=== PATIENT | female | born 1970 | race Caucasian/White ===

== ENCOUNTER → 2018-12-18 | Outpatient (REF) ==
[2018-12-18 18:23] LABS: BASO # 0.1 10^3/uL (0.0-0.2); BASO % 0.6 % (0.0-1.0); EOS # 0.1 10^3/uL (0.0-0.50); HEMATOCRIT 37.2 % (36.0-47.0); HEMOGLOBIN 11.7 g/dl (12.0-15.5); LYMPH % 38.5 % (24.0-44.0); MEAN CORPUSCULAR HGB CONC 31.5 g/dl (32.0-36.5); MEAN CORPUSCULAR VOLUME 92.3 fl (80.0-96.0); MONO # 0.8 10^3/uL (0.0-0.8); MONO % 10.8 % (0.0-5.0); NEUTROPHILS # 3.8 10^3/uL (1.8-7.7); PLATELET COUNT, AUTOMATED 313 10^3/uL (150-450); RED BLOOD COUNT 4.03 10^6/uL (4.00-5.40); WHITE BLOOD COUNT 7.8 10^3/uL (4.0-10.0)
== END ==
LOC: M LABSMT 17:02
PROVIDERS: ATTEND Allergy & Immunology Allergy
DX: J45.30 Mild persistent asthma, uncomplicated (principal)

== ENCOUNTER → 2020-03-01 | Outpatient (REF) | payer BC ==
[~2020-03-01] MED LIST: ARMO1TAB PO; CYMB60CA3 PO; FERR240T PO; LISI10TA4 PO; MACR100C43 PO; METF10004 PO; VITA50005 PO; XANA0.25 PO
[2020-03-01 17:52] LABS: APPEARANCE, URINE CLEAR (CLEAR); BACTERIA, URINE AUTO 1+ (NEGATIVE); BILIRUBIN, URINE AUTO NEGATIVE (NEGATIVE); BLOOD, URINE BLOOD NEGATIVE (NEGATIVE); COLOR, URINE YELLOW (YELLOW); GLUCOSE, URINE (UA) AUTO NEGATIVE (NEGATIVE); KETONE, URINE AUTO NEGATIVE (NEGATIVE); LEUKOCYTE ESTERASE, URINE AUTO NEGATIVE (NEGATIVE); MUCUS, URINE SMALL (NEGATIVE); NITRITE, URINE AUTO POSITIVE (NEGATIVE); PROTEIN, URINE AUTO NEGATIVE (NEGATIVE); RBC, URINE AUTO 0 /HPF (0-3); SPECIFIC GRAVITY URINE AUTO 1.017 (1.002-1.035); SQUAMOUS EPITHELIAL CELL UR AU 0 /HPF (0-6); UROBILINOGEN, URINE AUTO 0.2 mg/dL (0.0-2.0); WBC, URINE AUTO 6 /HPF (0-3)
== END ==
LOC: M SMT 16:43
PROVIDERS: ATTEND Urology
DX: N39.8 Other specified disorders of urinary system (principal)

== ENCOUNTER → 2020-03-17 | Outpatient (CLI) | payer BC ==
[~2020-03-17] MED LIST changes: +B-121KIT IJ
== END ==
LOC: M LABSMTC 10:46
PROVIDERS: ATTEND Anesthesiology
DX: Z01.812 Encounter for preprocedural laboratory examination (principal); Z20.828 Contact with and (suspected) exposure to other viral communicable diseases
CPT/HCPCS: C9803; U0003

== ENCOUNTER 2020-03-22 05:58 | Day surgery (SDC) | payer BC ==
[~2020-03-22] VITALS: Ht 167.6 cm; Wt 121.1 kg
[~2020-03-22 05:58] MED LIST changes: -B-121KIT IJ
[2020-03-22] MEDS ORDERED: B-121KIT IJ (06:22)
[2020-03-22] MEDS ORDERED: LR 1,000 ML IV ONE (07:00)
[2020-03-22] MEDS ORDERED: ceFAZolin SOD 2 GM in IV 1 EA IV ONE (07:00)
[2020-03-22] MEDS ORDERED: propofoL 200 MG/20 ML VIAL As Ordered ONE (07:10)
[2020-03-22] MEDS ORDERED: LIDOCAINE 2% 100MG/5ML SDV (FOR ANES.) As Ordered ONE (07:11)
[2020-03-22] MEDS ORDERED: fentaNYL 100 MCG/2 ML INJECTION (J3010) As Ordered ONE (07:13)
[2020-03-22] MEDS ORDERED: dexameTHASONE 4 MG/ML 1ML VIAL (J1100 PER 1MG) As Ordered ONE (07:13)
[2020-03-22] MEDS ORDERED: ONDANSETRON 4MG/2ML VIAL As Ordered ONE (07:13)
[2020-03-22] MEDS ORDERED: MIDAZOLAM INJ 2MG/2ML VIAL (J2250 PER 1MG) As Ordered ONE (07:13)
[2020-03-22] MEDS ORDERED: LIDOCAINE 1% MDV 50ML VIAL As Ordered ONE (07:17)
[2020-03-22] MEDS ORDERED: LIDOCAINE 2% 5ML JELLY UROJET As Ordered ONE ×2 (07:17→07:18)
[2020-03-22] MEDS ORDERED: ACETAMINOPHEN 1000MG 100ML IV BTL (OFIRMEV) (J0131 PER 10MG) As Ordered ONE (08:05)
--- NOTE | 2020-03-22 08:42 | ROOPDOC ---
[facility] Report Of Operation Report of Operation DATE OF PROCEDURE: 03/22/20 PREPROCEDURE DIAGNOSES: Hematuria and voiding dysfunction. POSTPROCEDURE DIAGNOSES: Same PROCEDURE: Cystoscopy, urethral dilation, hydrodistention, and bladder biopsies SURGEON: Ksenia Baez MD MARINE ENGINE DRIVER: None ANESTHESIA: General ESTIMATED BLOOD LOSS: Approximately 0 mL. COMPLICATIONS: None REMARKS: Some pseudomembranous trigonitis which was fulgurated PROCEDURE NOTE: The patient is a 49-year-old female who was scheduled by Dr. Wilcox for random biopsies for gross hematuria and also hydrodistention for voiding dysfunction. All options, alternatives, risks, and benefits were discussed with the patient. Informed consent was obtained in verbal and written form. DESCRIPTION OF PROCEDURE: The patient was brought into the operating room and anesthesia was induced. She was placed in the lithotomy position. She was prepped and draped in the usual fashion. A 21 U[place]bek cystoscope was inserted and the bladder was emptied this was then filled under gravity drainage with normal saline ladder capacity was greater than 800 mL under anesthesia. After distention there was no evidence of glomerulations or abnormalities. There was some pseudomembranous trigonitis. Both ureteral orifices were seen. There was no evidence of erythematous patches, lesions, stones, or other abnormalities. Random bladder biopsies were taken including of the area pseudomembranous trigonitis. This area was then fulgurated. The patient tolerated the procedure well. KSENIA BAEZ MD Mar 22, 2020 08:42
[2020-03-22] MEDS ORDERED: oxyCODONE 5MG TAB PO PRN (09:15)
[2020-03-22] MEDS ORDERED: METOCLOPRAMIDE INJ 10MG/2ML VIAL (J2765 PER 1) IV PRN (09:15)
[2020-03-22] MEDS ORDERED: fentaNYL 100 MCG/2 ML INJECTION (J3010) IV PRN (09:15)
[2020-03-22] MEDS ORDERED: LR 1,000 ML IV SCH (09:15)
[2020-03-22] MEDS ORDERED: MEPERIDINE INJ 25 MG/ML VIAL (J2175) IV PRN (09:15)
[2020-03-22] MEDS ORDERED: ONDANSETRON 4MG/2ML VIAL IV PRN (09:15)
[2020-03-22 09:35] VITALS: BP 140/82
== END 2020-03-22 09:35 | disposition home or self-care (01) ==
LOC: M SDC 05:58
PROVIDERS: ATTEND Specialist
DX: R31.9 Hematuria, unspecified (principal); I10 Essential (primary) hypertension; J45.909 Unspecified asthma, uncomplicated; K21.9 Gastro-esophageal reflux disease without esophagitis; Z98.84 Bariatric surgery status; E03.9 Hypothyroidism, unspecified; F41.9 Anxiety disorder, unspecified; F32.9 Major depressive disorder, single episode, unspecified; Z79.84 Long term (current) use of oral hypoglycemic drugs; Z79.899 Other long term (current) drug therapy; Z91.041 Radiographic dye allergy status; Z88.5 Allergy status to narcotic agent; Z88.2 Allergy status to sulfonamides; Z88.1 Allergy status to other antibiotic agents
CPT/HCPCS: 52204; 52260; 88305; J0131; J0690; J1100; J2250; J2405; J3010

== ENCOUNTER → 2020-04-14 | Outpatient (CLI) | payer BC ==
[~2020-04-14] MED LIST changes: +B-121KIT IJ
== END ==
LOC: M LABSMTC 11:10
PROVIDERS: ATTEND Anesthesiology
DX: Z01.812 Encounter for preprocedural laboratory examination (principal); Z20.828 Contact with and (suspected) exposure to other viral communicable diseases

== ENCOUNTER 2020-04-19 07:48 | Day surgery (SDC) | payer BC ==
[~2020-04-19] VITALS: Ht 167.6 cm; Wt 121.6 kg
[~2020-04-19 07:48] MED LIST changes: +LIDOCAINE 2% 100MG/5ML SDV (FOR ANES.) As Ordered ONE; +NS 1,000 ML IV ONE; +propofoL 200 MG/20 ML VIAL As Ordered ONE
--- NOTE | 2020-04-19 09:03 | ROOR ---
Patient Name: Kristin Morrison Procedure Date: 04/19/2020 8:36 AM Date of : 1970 Age: 49 Room: [facility] Gender: Female Note Status: Finalized Procedure: Colonoscopy Indications: Suspected irritable bowel syndrome, Change in bowel habits Providers: Joe COTTON MD Referring MD: Jeannette MALONEY MD Requesting Provider: Medicines: Monitored Anesthesia Care Complications: No immediate complications. Procedure: Pre-Anesthesia Assessment: - The heart rate, respiratory rate, oxygen saturations, blood pressure, adequacy of pulmonary ventilation, and response to care were monitored throughout the procedure. The Colonoscope was introduced through the anus and advanced to 10 cm into the ileum. The colonoscopy was performed without difficulty. The patient tolerated the procedure well. The quality of the bowel preparation was good. Findings: The perianal and digital rectal examinations were normal. The colon (entire examined portion) appeared normal. The terminal ileum appeared normal. Biopsies for histology were taken with a cold forceps for evaluation of microscopic colitis. Impression: - The entire examined colon is normal. - The examined portion of the ileum was normal. - Biopsies were taken with a cold forceps for evaluation of microscopic colitis. - (Irritable Bowel Syndrome/IBS suspected.) Recommendation: - Telephone endoscopist for pathology results in 2 weeks. - Use fiber, for example Citrucel, Fibercon, Konsyl or Metamucil. - Continue present medications. Procedure Code(s): --- Professional --- 92021, Colonoscopy, flexible; with biopsy, single or multiple Diagnosis Code(s): --- Professional --- R19.4, Change in bowel habit CPT copyright 2019 [employer]. All rights reserved. The codes documented in this report are preliminary and upon welding machine operator plasma arc review may be revised to meet current compliance requirements. Joe Cotton MD Joe COTTON MD 04/19/2020 9:03:16 AM Electronically signed by Joe COTTON MD Number of Addenda: 0 Note Initiated On: 04/19/2020 8:36 AM Estimated Blood Loss: Estimated blood loss: none.
[2020-04-19 09:25] VITALS: BP 145/92
== END 2020-04-19 09:37 | disposition home or self-care (01) ==
LOC: M OPP 07:48
PROVIDERS: ATTEND Internal Medicine Gastroenterology
DX: R19.4 Change in bowel habit (principal); K63.89 Other specified diseases of intestine; Z80.0 Family history of malignant neoplasm of digestive organs; Z98.84 Bariatric surgery status; Z79.899 Other long term (current) drug therapy; Z88.5 Allergy status to narcotic agent; Z88.8 Allergy status to other drugs, medicaments and biological substances; Z91.041 Radiographic dye allergy status